=== PATIENT | female | born 1960 | race Caucasian/White ===

== ENCOUNTER 2020-07-04 07:04 | Emergency (ER) | payer OTHER ==
[2020-07-04 07:13] VITALS: RESP 18
[2020-07-04] MEDS ORDERED: SODIUM CHLORIDE 0.9% 1,000 ML IV ONE ×2 (07:20→08:12)
[2020-07-04] MEDS ORDERED: HYDROmorphone 0.5 MG/0.5 ML SYRINGE IVP STA (07:20)
[2020-07-04] MEDS ORDERED: SODIUM CHLORIDE 0.9% 1,000 ML IV SCH (07:30)
[2020-07-04 07:56] LABS: Basophils % (A) 0 %; Eosinophils % (A) 0 %; HCT 34.1 % (34.0-46.0); HGB 11.4 gm/dL (11.4-16.0); Lymphocytes # (A) 0.8 k/uL (1.0-4.8); Lymphocytes % (A) 8 %; MCH 28.1 pg (25.0-35.0); MCHC 33.4 g/dL (31.0-37.0); MCV 83.9 fL (80.0-100.0); Mean Platelet Volume 6.4; Monocytes # (A) 0.4 k/uL (0-1.0); Monocytes % (A) 4 %; Neutrophils # (A) 9.4 k/uL (1.3-7.7); Neutrophils % (A) 87 %; Platelet Count 595 k/uL (150-450); RBC 4.06 m/uL (3.80-5.40); RDW 15.7 % (11.5-15.5); WBC 10.8 k/uL (3.8-10.6)
--- NOTE | 2020-07-04 08:10 | XR ---
Right shoulder HISTORY: Trauma one day prior, pain 3 views of the right shoulder Arthropathy is present at the acromioclavicular joint. Bone mineralization and joint spaces are maint ained. Right lung apex as visualized is normal. IMPRESSION: No fracture or dislocation.
--- NOTE | 2020-07-04 08:11 | XR ---
Right hand HISTORY: Trauma and pain 3 views the right hand There is a dislocation at the proximal interphalangeal joint of the third digit of the left hand whic h is posterior and shows bayonet apposition. No evident fracture. IMPRESSION: Third digit posterior dislocation.
[2020-07-04 08:21] LABS: Albumin 3.9 g/dL (3.5-5.0); Calcium 9.3 mg/dL (8.4-10.2); Potassium 3.4 mmol/L (3.5-5.1); Total Bilirubin 0.6 mg/dL (0.2-1.3)
[2020-07-04 08:37] LABS: Partial Thromboplastin Time 47.8 sec (22.0-30.0)
[2020-07-04 08:38] LABS: Prothrombin Time 64.3 sec (9.0-12.0)
--- NOTE | 2020-07-04 08:42 | CT ---
EXAMINATION TYPE: CT abdomen pelvis w con DATE OF EXAM: 07/04/2020 HISTORY: Abd pain with nausea and vomiting. History of Crohn's disease. Recent colostomy and drainage tube. CT DLP: 524.7mGycm Automated Exposure Control for Dose Reduction was Utilized. CONTRAST: CT scan of the abdomen and pelvis is performed without oral but with IV Contrast, patient injected wi th 100 mL of Isovue 300. COMPARISON: None. FINDINGS: LUNG BASES: No significant abnormality is appreciated. LIVER/GB: No significant abnormality is appreciated. PANCREAS: No significant abnormality is seen. SPLEEN: No significant abnormality is seen. ADRENALS: No significant abnormality is seen. KIDNEYS: Symmetric cortical medullary uptake and excretion from both kidneys without hydronephrosis s een bilaterally. Occasional subcentimeter round hypodense lesion bilaterally too small to further boo racterize presumed benign. BOWEL: Suboptimal evaluation of bowel without enteric contrast. Stomach poorly distended, suboptimall y evaluated. No suspicious small or large bowel dilatation. Surgical changes right lower quadrant fro m prior partial bowel resection and neoileocolonic anastomosis. Areas of focal mild to moderate wall thickening involving small bowel loops anteriorly in the mid abdomen and portions of the transverse a nd left colon extending into the sigmoid and rectal colon. In the left lower quadrant there is a foca l area of moderate ill-defined fluid and fat stranding on background intraperitoneal fat with local m ass effect measuring roughly 5 cm coronal image 35 for reference. There is left-sided ostomy site in the upper pelvis just medial and inferior to this. Occasional focus of pneumoperitoneum near this lev el for reference axial image 55. Findings presumed postsurgical. UTERUS/ADNEXA: Anteverted uterus. LYMPH NODES: No greater than 1cm abdominal or pelvic lymph nodes are appreciated. Some scattered prom inent but subcentimeter mesenteric lymph nodes. OSSEOUS STRUCTURES: Moderate to severe disc space narrowing with vacuum disc phenomenon at L4-L5 leve l. Mild to moderate spurring. Moderate narrowing and spurring of both hip joints. OTHER: No significant additional abnormality is seen. IMPRESSION: 1. Multifocal enterocolitis is felt present. Differential includes infectious, inflammatory, and isch emic etiologies. Small area of fat stranding and local mass effect left lower quadrant near ostomy co uld reflect omental infarct or epiploic appendagitis. No bowel obstruction currently.
[2020-07-04 08:48] LABS: INR 6.3 (<1.2)
[2020-07-04] MEDS ORDERED: PIPERACILLIN-TAZOBACTAM 3.375 GM in SODIUM CHLORIDE 0.9% 100 ML IVPB STA (08:49)
[2020-07-04] MEDS ORDERED: SODIUM CHLORIDE 0.9% 500 ML 500 ML IV ONE (08:50)
--- NOTE | 2020-07-04 08:52 | ED ---
Nausea/Vomiting/Diarrhea HPI - General Chief complaint: Nausea/Vomiting/Diarrhea Stated complaint: Nausea, vomiting Time Seen by Provider: 07/04/20 07:09 Source: patient, EMS Mode of arrival: EMS - History of Present Illness Initial comments: 59-year-old female with history of Crohn's disease with recent ostomy placement 06/20/20 at [facility] by Dr. Campa presenting to the ER to for abdominal pain, nausea. pt states that she has had abdominal pain since "gas drain" removal yesterday. Pt states that she has been feeling very weak, thus causing her to fall, she states she stretched out her hands and this caused injury to her left third digit. she believes it is dislocated. patient denies hitting head, she states im 100% sure I did not hit my head. denies headaches, visual changes, nausea, vomiting, diplopia, speech changes, denies neck, chest or abdominal injury. pt states she feel dehydrated and has been trying to drink as much as she can but she is nauseated. pt denies chest pain, fever, or shortness of breath. endorses occasional chills. Patient otherwise has no additional complaints. she is in good spirits on arrival no distress. does not appear toxic. - Related Data Home Medications Medication Instructions Recorded Confirmed Sertraline [Zoloft] 100 mg PO DAILY@1200 07/04/20 07/04/20 Warfarin [Coumadin] 5 mg PO DAILY@1200 07/04/20 07/04/20 Allergies Allergy/AdvReac Type Severity Reaction Status Date / Time No Known Allergies Allergy Verified 07/04/20 08:17 Review of Systems ROS Statement: Those systems with pertinent positive or pertinent negative responses have been documented in the HPI. ROS Other: All systems not noted in ROS Statement are negative. Past Medical History Past Medical History: Deep Vein Thrombosis (DVT) Additional Past Medical History / Comment(s): Crohns disease History of Any Multi-Drug Resistant Organisms: None Reported Additional Past Surgical History / Comment(s): Colostomy, bowel resxtion 2004 Past Psychological History: No Psychological Hx Reported Smoking Status: Never smoker Past Alcohol Use History: None Reported Past Drug Use History: Marijuana General Exam - General Exam Comments Initial Comments: General: The patient is awake and alert, in no distress, very pleasant Eye: +3 mm pupils are equal, round and reactive to light, extra-ocular movem ents are intact. No nystagmus. There is normal conjunctiva bilaterally. No signs of icterus. Ears, nose, mouth and throat: There are moist mucous membranes and no oral l esions. Neck: The neck is supple, there is no tenderness or JVD. Cardiovascular: There is a regular rate and rhythm. No murmur, rub or gallop is appreciated. Respiratory: Lungs are clear to auscultation, respirations are non-labored, breath sounds are equal. No wheezes, stridor, rales, or rhonchi. Gastrointestinal: Ostomy left side of abdomen , loose greenyellow stool. Soft, non-distended, diffuse moderately tender abdomen, abdomen without masses or organomegaly noted. There is no rebound or guarding present. Musculoskeletal: There is swelling at the PIP joint of the left third digit. Normal capillary refill. Cannot fully range a joint. Normal ROM of the UE b/l. Strength 5/5 of the UE and LE b/l. Sensation intact of the UE and LE b/l. Radial pulses equal bilaterally 2+. Neurological: A&O x 3. CN II-XII intact, There are no obvious motor or sensory deficits. Coordination appears grossly intact. Speech is normal. Skin: Skin is warm and dry and no rashes or lesions are noted. Psychiatric: Cooperative, appropriate mood & affect, normal judgment. Course Vital Signs 07/04/20 07/04/20 07/04/20 07:05 07:16 08:24 Temperature 98.4 F Pulse Rate 96 75 Respiratory 18 18 Rate Blood Pressure 130/89 164/91 O2 Sat by Pulse 100 99 Oximetry Medical Decision Making - Medical Decision Making Lactic acid elevation, mild leukocytosis. Patient has no pain out of proportion abdominal exam moderate tenderness. Patient has findings on CT most consistent with enterocolitis. Patient has significant elevation of creatinine and BUN--patient appears dry and physical exam differential diagnosis includes pre- renal from dehydration. Patient hydrated. Antibiotics initiated. pt also had fall secondary to weakness, adamently denies head injury. Pt xr (-) of shoulder. dislocation third left finger. attempted reduction in ER prior to transfer. pt is being transferred for continuity of care with general surgery who is familiar with patient Crohn's disease history. patient prefers and is agreeable to transfer. transfer accepted by Dr. Roberson. Dr. Machuca agreeable to care plan and discharge. - Lab Data Result diagrams: 07/04/20 07:37 07/04/20 07:29 Lab Results 07/04/20 07/04/20 07/04/20 Range/Units 07:29 07:29 07:29 WBC (3.8-10.6) k/uL RBC (3.80-5.40) m/uL Hgb (11.4-16.0) gm/dL Hct (34.0-46.0) % MCV (80.0-100.0) fL MCH (25.0-35.0) pg MCHC (31.0-37.0) g/dL RDW (11.5-15.5) % Plt Count (150-450) k/uL MPV Neutrophils % % Lymphocytes % % Monocytes % % Eosinophils % % Basophils % % Neutrophils # (1.3-7.7) k/uL Lymphocytes # (1.0-4.8) k/uL Monocytes # (0-1.0) k/uL Eosinophils # (0-0.7) k/uL Basophils # (0-0.2) k/uL PT (9.0-12.0) sec INR (<1.2) APTT (22.0-30.0) sec Sodium 128 L (137-145) mmol/L Potassium 3.4 L (3.5-5.1) mmol/L Chloride 79 L (98-107) mmol/L Carbon Dioxide 38 H (22-30) mmol/L Anion Gap 11 mmol/L BUN 42 H (7-17) mg/dL Creatinine 3.04 H (0.52-1.04) mg/dL Est GFR (CKD-EPI)AfAm 18 (>60 ml/min/1.73 sqM) Est GFR (CKD-EPI)NonAf 16 (>60 ml/min/1.73 sqM) Glucose 186 H (74-99) mg/dL Plasma Lactic Acid Golden 4.0 H* (0.7-2.0) mmol/L Calcium 9.3 (8.4-10.2) mg/dL Total Bilirubin 0.6 (0.2-1.3) mg/dL AST 37 H (14-36) U/L ALT 33 (4-34) U/L Alkaline Phosphatase 141 H (38-126) U/L Troponin I <0.012 (0.000-0.034) ng/mL Total Protein 7.0 (6.3-8.2) g/dL Albumin 3.9 (3.5-5.0) g/dL Amylase 261 H (30-110) U/L Lipase 601 H (23-300) U/L Urine Color Urine Appearance (Clear) Urine pH (5.0-8.0) Ur Specific [place] (1.001-1.035) Urine Protein (Negative) Urine Glucose (UA) (Negative) Urine Ketones (Negative) Urine Blood (Negative) Urine Nitrite (Negative) Urine Bilirubin (Negative) Urine Urobilinogen (<2.0) mg/dL Ur Leukocyte Esterase (Negative) 07/04/20 07/04/20 07/04/20 Range/Units 07:37 07:37 08:24 WBC 10.8 H (3.8-10.6) k/uL RBC 4.06 (3.80-5.40) m/uL Hgb 11.4 (11.4-16.0) gm/dL Hct 34.1 (34.0-46.0) % MCV 83.9 (80.0-100.0) fL MCH 28.1 (25.0-35.0) pg MCHC 33.4 (31.0-37.0) g/dL RDW 15.7 H (11.5-15.5) % Plt Count 595 H (150-450) k/uL MPV 6.4 Neutrophils % 87 % Lymphocytes % 8 % Monocytes % 4 % Eosinophils % 0 % Basophils % 0 % Neutrophils # 9.4 H (1.3-7.7) k/uL Lymphocytes # 0.8 L (1.0-4.8) k/uL Monocytes # 0.4 (0-1.0) k/uL Eosinophils # 0.0 (0-0.7) k/uL Basophils # 0.0 (0-0.2) k/uL PT 64.3 H (9.0-12.0) sec INR 6.3 H* (<1.2) APTT 47.8 H (22.0-30.0) sec Sodium (137-145) mmol/L Potassium (3.5-5.1) mmol/L Chloride (98-107) mmol/L Carbon Dioxide (22-30) mmol/L Anion Gap mmol/L BUN (7-17) mg/dL Creatinine (0.52-1.04) mg/dL Est GFR (CKD-EPI)AfAm (>60 ml/min/1.73 sqM) Est GFR (CKD-EPI)NonAf (>60 ml/min/1.73 sqM) Glucose (74-99) mg/dL Plasma Lactic Acid Golden (0.7-2.0) mmol/L Calcium (8.4-10.2) mg/dL Total Bilirubin (0.2-1.3) mg/dL AST (14-36) U/L ALT (4-34) U/L Alkaline Phosphatase (38-126) U/L Troponin I (0.000-0.034) ng/mL Total Protein (6.3-8.2) g/dL Albumin (3.5-5.0) g/dL Amylase (30-110) U/L Lipase (23-300) U/L Urine Color Yellow Urine Appearance Clear (Clear) Urine pH 7.0 (5.0-8.0) Ur Specific [place] 1.016 (1.001-1.035) Urine Protein Trace H (Negative) Urine Glucose (UA) Negative (Negative) Urine Ketones Negative (Negative) Urine Blood Negative (Negative) Urine Nitrite Negative (Negative) Urine Bilirubin Negative (Negative) Urine Urobilinogen <2.0 (<2.0) mg/dL Ur Leukocyte Esterase Negative (Negative) Disposition Clinical Impression: Supratherapeutic INR, Dislocated finger, Shoulder pain, Abdominal pain, Weakness, Nausea, Lactic acidosis, Enterocolitis Disposition: TRANSFER TO PSYCH HOSP/UNIT Condition: Stable Is patient prescribed a controlled substance at d/c from ED?: No Referrals: Nonstaff,Physician [Primary Care Provider] - 1-2 days Time of Disposition: 09:13 - Out of Hospital Transfer - Req. Specs Out of Hospital Transfer - Requested Specifics: Other Emergency Center ([facility])
[2020-07-04] MEDS ORDERED: ONDANSETRON 4 MG/2 ML VIAL IVP PRN (08:56)
[2020-07-04] MEDS ORDERED: HYDROmorphone 0.5 MG/0.5 ML SYRINGE IVP PRN (08:56)
[2020-07-04 08:57] LABS: Appearance,Urine Clear (Clear); Bilirubin,Urine Negative (Negative); Blood,Urine Negative (Negative); Color,Urine Yellow; Glucose,Urine (UA) Negative (Negative); Ketones,Urine Negative (Negative); Leukocyte Esterase,Urine Negative (Negative); Nitrite,Urine Negative (Negative); Protein,Urine Trace (Negative); Specific Gravity,Urine 1.016 (1.001-1.035); Urobilinogen,Urine <2.0 mg/dL (<2.0)
[2020-07-04] MEDS ORDERED: POTASSIUM CHLORIDE ER 10 MEQ TAB.ER.PRT PO STA (09:00)
[2020-07-04] MEDS ORDERED: LIDOCAINE 1% INJ 10MG/ML (20 ML MDV) SQ ONE (09:07)
[2020-07-04 09:59] VITALS: BP 117/80; PULSE 74; TEMP 98.6
[2020-07-04] MEDS ORDERED: LORazepam 2 MG/ML INJ IV STA (10:01)
[2020-07-04] MEDS ORDERED: diphenhydrAMINE 50 MG/ML 1 ML VIAL IVP STA (10:01)
== END 2020-07-04 10:41 ==
LOC: EC 07:04
DX: E87.2 Acidosis (principal); K52.9 Noninfective gastroenteritis and colitis, unspecified; R53.1 Weakness; S63.253A Unspecified dislocation of left middle finger, initial encounter; R79.1 Abnormal coagulation profile; D72.829 Elevated white blood cell count, unspecified; R79.89 Other specified abnormal findings of blood chemistry; E86.0 Dehydration; M25.519 Pain in unspecified shoulder; K50.90 Crohn's disease, unspecified, without complications; Z86.718 Personal history of other venous thrombosis and embolism; Z79.01 Long term (current) use of anticoagulants; Z90.49 Acquired absence of other specified parts of digestive tract; W19.XXXA Unspecified fall, initial encounter
CPT/HCPCS: 36415; 93005; 80053; 82150; 83605; 83690; 84484; 85025; 85610; 85730; 81003; 87040; 73030; 73130; 74177; 99285; 96365; 96375 ×4; 96376; 96361 ×2; J2543; J2060; J1200; J2001; J1170; Q9967

== ENCOUNTER 2020-08-14 13:02 | Emergency (ER) | payer OTHER ==
[2020-08-14] MEDS ORDERED: ONDANSETRON 4 MG/2 ML VIAL IVP STA (13:05)
[2020-08-14] MEDS ORDERED: MORPHINE SULFATE 4 MG/ML SYRINGE IV STA (13:05)
[2020-08-14] MEDS ORDERED: SODIUM CHLORIDE 0.9% 1,000 ML IV STA ×2 (13:05)
[2020-08-14 13:09] VITALS: RESP 18
--- NOTE | 2020-08-14 13:11 | ED ---
Abdominal Pain HPI - General Stated Complaint: NVD Time Seen by Provider: 08/14/20 13:02 Source: patient, RN notes reviewed - History of Present Illness Initial Comments: This is a 59-year-old female with a history of Crohn's disease with a colostomy done on June 20 this past year who had the onset last night of abdominal sp asms and pain is severe as 10/10+10. He also have nausea vomiting today decreased oral intake she feels somewhat weak still has very severe crampy abdominal spasms no fevers chills no overt sweats no dysuria. He states been having a lot of output from her colostomy. Yellow color no blood. No other complaints or modifying factors at this time patient states she does have a history of DVTs and currently is on jesus [facility] Complaint: abdominal pain - Related Data Home Medications Medication Instructions Recorded Confirmed Sertraline [Zoloft] 100 mg PO DAILY@1200 07/04/20 08/14/20 Apixaban [Eliquis] 2.5 mg PO BID 08/14/20 08/14/20 Dicyclomine [Bentyl] 20 mg PO TID 08/14/20 08/14/20 Loperamide [Imodium] 4 mg PO TID 08/14/20 08/14/20 Magnesium Oxide [Mag-Ox] 400 mg PO DAILY 08/14/20 08/14/20 Multivitamins, Thera [Multivitamin 1 tab PO DAILY 08/14/20 08/14/20 (formulary)] Allergies Allergy/AdvReac Type Severity Reaction Status Date / Time No Known Allergies Allergy Verified 08/14/20 14:13 Review of Systems ROS Statement: Those systems with pertinent positive or pertinent negative responses have been documented in the HPI. ROS Other: All systems not noted in ROS Statement are negative. Past Medical History Past Medical History: Deep Vein Thrombosis (DVT) Additional Past Medical History / Comment(s): Crohns disease History of Any Multi-Drug Resistant Organisms: None Reported Additional Past Surgical History / Comment(s): Colostomy, bowel resxtion 2004 Past Psychological History: No Psychological Hx Reported Smoking Status: Never smoker Past Alcohol Use History: None Reported Past Drug Use History: Marijuana General Exam - General Exam Comments Initial Comments: This a well-developed sec appearing female who is awake alert oriented 3 General appearance: alert, anxious, in distress Head exam: Present: atraumatic, normocephalic, normal inspection Eye exam: Present: normal appearance, PERRL, EOMI. Absent: scleral icterus, conjunctival injection, periorbital swelling ENT exam: Present: mucous membranes dry Neck exam: Present: normal inspection. Absent: tenderness, meningismus, lymph adenopathy Respiratory exam: Present: normal lung sounds bilaterally. Absent: respiratory distress, wheezes, rales, rhonchi, stridor Cardiovascular Exam: Present: regular rate, normal rhythm, normal heart sounds. Absent: systolic murmur, diastolic murmur, rubs, gallop, clicks GI/Abdominal exam: Present: soft, normal bowel sounds. Absent: distended, tenderness, guarding, rebound, rigid, bruit, pulsatile mass (Ill-appearing liquid stool in the left-sided colostomy bag. No evidence of any blood. The ostomy site itself appears to be intact no evidence of dehiscence) Extremities exam: Present: normal inspection, full ROM, normal capillary refill. Absent: tenderness, pedal edema, joint swelling, calf tenderness Back exam: Present: normal inspection Neurological exam: Present: alert, oriented X3, CN II-XII intact Psychiatric exam: Present: normal affect, normal mood Skin exam: Present: warm, dry, intact, normal color. Absent: rash Course Vital Signs 08/14/20 13:07 Temperature 98.6 F Pulse Rate 81 Respiratory 18 Rate Blood Pressure 122/92 O2 Sat by Pulse 99 Oximetry Medical Decision Making - Medical Decision Making Reevaluation patient finds that she does feel improved with respect to her abdominal pain. I did discuss the findings with her she does have evidence of acute kidney injury as well as acute pancreatitis and dehydration. She also has lactic acidosis likely secondary to viral depletion. After discussion with her she is requesting transfer to [facility] where she had already care done including surgery. I did discuss the case with Dr. Chapa in the emergency department was agreed to accept the patient transfer the patient's surgeon was Dr. Campa. - Lab Data Result diagrams: 08/14/20 13:30 08/14/20 13:30 Lab Results 08/14/20 08/14/20 08/14/20 Range/Units 13:30 13:30 13:30 WBC 9.6 (3.8-10.6) k/uL RBC 4.12 (3.80-5.40) m/uL Hgb 12.3 (11.4-16.0) gm/dL Hct 35.5 (34.0-46.0) % MCV 86.2 (80.0-100.0) fL MCH 29.9 (25.0-35.0) pg MCHC 34.7 (31.0-37.0) g/dL RDW 16.2 H (11.5-15.5) % Plt Count 395 (150-450) k/uL MPV 6.6 Neutrophils % 81 % Lymphocytes % 14 % Monocytes % 4 % Eosinophils % 0 % Basophils % 0 % Neutrophils # 7.8 H (1.3-7.7) k/uL Lymphocytes # 1.3 (1.0-4.8) k/uL Monocytes # 0.4 (0-1.0) k/uL Eosinophils # 0.0 (0-0.7) k/uL Basophils # 0.0 (0-0.2) k/uL Anisocytosis Slight Sodium 131 L (137-145) mmol/L Potassium 3.5 (3.5-5.1) mmol/L Chloride 78 L (98-107) mmol/L Carbon Dioxide 32 H (22-30) mmol/L Anion Gap 21 mmol/L BUN 75 H (7-17) mg/dL Creatinine 6.64 H (0.52-1.04) mg/dL Est GFR (CKD-EPI)AfAm 7 (>60 ml/min/1.73 sqM) Est GFR (CKD-EPI)NonAf 6 (>60 ml/min/1.73 sqM) Glucose 128 H (74-99) mg/dL Plasma Lactic Acid Golden 3.2 H* (0.7-2.0) mmol/L Calcium 8.7 (8.4-10.2) mg/dL Total Bilirubin 0.7 (0.2-1.3) mg/dL AST 48 H (14-36) U/L ALT 49 H (4-34) U/L Alkaline Phosphatase 143 H (38-126) U/L Creatine Kinase 190 H (30-135) U/L Troponin I (0.000-0.034) ng/mL Total Protein 8.5 H (6.3-8.2) g/dL Albumin 5.1 H (3.5-5.0) g/dL Amylase 731 H* (30-110) U/L Lipase 3740 H (23-300) U/L 08/14/20 Range/Units 13:30 WBC (3.8-10.6) k/uL RBC (3.80-5.40) m/uL Hgb (11.4-16.0) gm/dL Hct (34.0-46.0) % MCV (80.0-100.0) fL MCH (25.0-35.0) pg MCHC (31.0-37.0) g/dL RDW (11.5-15.5) % Plt Count (150-450) k/uL MPV Neutrophils % % Lymphocytes % % Monocytes % % Eosinophils % % Basophils % % Neutrophils # (1.3-7.7) k/uL Lymphocytes # (1.0-4.8) k/uL Monocytes # (0-1.0) k/uL Eosinophils # (0-0.7) k/uL Basophils # (0-0.2) k/uL Anisocytosis Sodium (137-145) mmol/L Potassium (3.5-5.1) mmol/L Chloride (98-107) mmol/L Carbon Dioxide (22-30) mmol/L Anion Gap mmol/L BUN (7-17) mg/dL Creatinine (0.52-1.04) mg/dL Est GFR (CKD-EPI)AfAm (>60 ml/min/1.73 sqM) Est GFR (CKD-EPI)NonAf (>60 ml/min/1.73 sqM) Glucose (74-99) mg/dL Plasma Lactic Acid Golden (0.7-2.0) mmol/L Calcium (8.4-10.2) mg/dL Total Bilirubin (0.2-1.3) mg/dL AST (14-36) U/L ALT (4-34) U/L Alkaline Phosphatase (38-126) U/L Creatine Kinase (30-135) U/L Troponin I <0.012 (0.000-0.034) ng/mL Total Protein (6.3-8.2) g/dL Albumin (3.5-5.0) g/dL Amylase (30-110) U/L Lipase (23-300) U/L - Radiology Data Radiology results: report reviewed (I did review the imaging and report no evidence of acute findings there are postoperative changes.), image reviewed Disposition Clinical Impression: Acute kidney injury, Acute pancreatitis, Dehydration, Abdominal pain, Lactic acidosis Disposition: OTHER INSTITUTION NOT DEFINED Condition: Fair Is patient prescribed a controlled substance at d/c from ED?: No Referrals: Nonstaff,Physician [Primary Care Provider] - 1-2 days - Out of Hospital Transfer - Req. Specs Out of Hospital Transfer - Requested Specifics: Other Emergency Center
[2020-08-14 13:40] LABS: Anisocytosis Slight; Basophils % (A) 0 %; Eosinophils % (A) 0 %; HCT 35.5 % (34.0-46.0); HGB 12.3 gm/dL (11.4-16.0); Lymphocytes # (A) 1.3 k/uL (1.0-4.8); Lymphocytes % (A) 14 %; MCH 29.9 pg (25.0-35.0); MCHC 34.7 g/dL (31.0-37.0); MCV 86.2 fL (80.0-100.0); Mean Platelet Volume 6.6; Monocytes # (A) 0.4 k/uL (0-1.0); Monocytes % (A) 4 %; Neutrophils # (A) 7.8 k/uL (1.3-7.7); Neutrophils % (A) 81 %; Platelet Count 395 k/uL (150-450); RBC 4.12 m/uL (3.80-5.40); RDW 16.2 % (11.5-15.5); WBC 9.6 k/uL (3.8-10.6)
--- NOTE | 2020-08-14 13:43 | XR ---
KUB HISTORY: Abdominal pain and vomiting Frontal KUB submitted and correlated to CT 07/04/2020 Lung bases are clear. There is no evident bowel obstruction or pneumoperitoneum. There is a spinal cu rvature present. No pathologic calcification. Postop changes are noted in the right lower quadrant. O stomy questioned in left lower quadrant. IMPRESSION: Postop changes.
[2020-08-14 13:50] LABS: Albumin 5.1 g/dL (3.5-5.0); Calcium 8.7 mg/dL (8.4-10.2); Potassium 3.5 mmol/L (3.5-5.1); Total Bilirubin 0.7 mg/dL (0.2-1.3); Total Protein 8.5 g/dL (6.3-8.2)
[2020-08-14 15:08] VITALS: BP 119/83; PULSE 82; TEMP 98.3
== END 2020-08-14 16:12 | disposition other institution (70) ==
LOC: EC 13:02
DX: K85.90 Acute pancreatitis without necrosis or infection, unspecified (principal); E87.2 Acidosis; E86.0 Dehydration; N17.9 Acute kidney failure, unspecified; Z79.01 Long term (current) use of anticoagulants; Z93.3 Colostomy status; Z86.718 Personal history of other venous thrombosis and embolism
CPT/HCPCS: 80053; 82150; 82550; 83605; 83690; 84484; 85025; 74018; 99285; 96374; 96375; 96361 ×3; J2270; J2405